=== PATIENT | male | born 1945 | race Caucasian/White ===

== ENCOUNTER → 2021-09-08 | Outpatient (CLI) | payer MEDICARE, OTHER | LOC: LAB 09:19 | DX: C32.9 Malignant neoplasm of larynx, unspecified (principal) | CPT/HCPCS: 36415; 82565 ==

== ENCOUNTER → 2021-09-10 | Outpatient (CLI) | payer MEDICARE, OTHER | LOC: CT 14:39 | DX: C32.9 Malignant neoplasm of larynx, unspecified (principal) | CPT/HCPCS: 71260; Q9967 ==

== ENCOUNTER → 2022-03-07 | Outpatient (CLI) | payer MEDICARE, OTHER | LOC: CT 13:26 | DX: C32.9 Malignant neoplasm of larynx, unspecified (principal); C93.10 Chronic myelomonocytic leukemia not having achieved remission | CPT/HCPCS: 70491; Q9967 ==